=== PATIENT | male | born 1950 | race Caucasian/White ===

== ENCOUNTER 2017-10-06 08:34 | Day surgery (SDC) | payer OTHER | END 2017-10-06 13:13 | disposition home or self-care (01) | LOC: AMB-ENDOS 08:34 | DX: C21.0 Malignant neoplasm of anus, unspecified (principal); K62.7 Radiation proctitis ==

== ENCOUNTER 2018-12-14 09:33 | Day surgery (SDC) | payer OTHER | END 2018-12-14 14:10 | disposition home or self-care (01) | LOC: AMB-ENDOS 09:33 | DX: K62.7 Radiation proctitis (principal) ==

== ENCOUNTER 2019-04-21 05:41 | Day surgery (SDC) | payer OTHER ==
[~2019-04-21 05:41] MED LIST: AMARYL PO; METFOR PO; [UNRECOGNIZED DRUG - OTHER] PO
[2019-04-21] MEDS ORDERED: DICLOFENAC SODI75 MG PO (09:07)
== END 2019-04-21 10:36 | disposition home or self-care (01) ==
LOC: CIR.AMB 05:41 → ADM 13:15 → CIR.AMB 13:15 → AMB-ENDOS 13:15
DX: C21.1 Malignant neoplasm of anal canal (principal); R19.5 Other fecal abnormalities; K62.7 Radiation proctitis

== ENCOUNTER 2020-03-06 11:09 | Day surgery (SDC) | payer OTHER ==
[~2020-03-06 11:09] MED LIST changes: +DICLOFENAC SODI75 MG PO
== END 2020-03-06 15:45 | disposition home or self-care (01) ==
LOC: AMB-ENDOS 11:09
PROVIDERS: ATTEND Surgery
DX: K62.89 Other specified diseases of anus and rectum (principal); Z20.828 Contact with and (suspected) exposure to other viral communicable diseases

== ENCOUNTER → 2020-03-06 11:35 | Outpatient (CLI) | payer OTHER | END | disposition home or self-care (01) | LOC: LAB 11:35 | PROVIDERS: ATTEND Surgery | DX: Z03.818 Encounter for observation for suspected exposure to other biological agents ruled out (principal) ==